=== PATIENT | male | born 1940 | race Caucasian/White ===

== ENCOUNTER → 2018-05-10 | Outpatient (CLI) | payer MEDICARE | END | disposition home or self-care (01) | LOC: PCVCCLINIC 11:19 | DX: I49.3 Ventricular premature depolarization (principal); R42 Dizziness and giddiness; R53.83 Other fatigue | CPT/HCPCS: 93005; G0463 ==

== ENCOUNTER → 2018-05-11 | Outpatient (CLI) | payer MEDICARE | END | disposition home or self-care (01) | LOC: PCVCIMAG 14:02 | DX: I65.23 Occlusion and stenosis of bilateral carotid arteries (principal); R53.83 Other fatigue; R42 Dizziness and giddiness; I49.3 Ventricular premature depolarization; Z79.899 Other long term (current) drug therapy | CPT/HCPCS: 93005; 93306; 93880; G0463 ==

== ENCOUNTER → 2018-06-24 | Outpatient (CLI) | payer MEDICARE | END | disposition home or self-care (01) | LOC: PCVCCLINIC 13:40 | PROVIDERS: ATTEND Internal Medicine | DX: I10 Essential (primary) hypertension (principal); E78.5 Hyperlipidemia, unspecified; R53.83 Other fatigue; Z79.899 Other long term (current) drug therapy; Z87.891 Personal history of nicotine dependence | CPT/HCPCS: G0463 ==

== ENCOUNTER → 2018-07-05 | Outpatient (CLI) | payer MEDICARE ==
--- NOTE | 2018-07-07 14:33 | PCVCIMAG ---
APPROVED REPORT Imaging Protocol: Rest Tc-99m/Stress Tc-99m 1 day Study performed: 07/05/2018 08:55:27 Indication: Fatigue, Palpitations Patient Location: Out-Patient Stress Nurse: Dora Reich RN ID Tech:Carmenmaria dolores Miller [facility] Ht: 5 ft 7 in Wt: 193 lbs BSA: 1.99 m2 HR: 80 bpm BP: 172/96 mmHg BMI: 30.2 Rhythm: SR Medical History Medical History: HTN, Hyperlipidemia, Former Smoker Medications: Atorvastatin, Klonopin, Lisinopril, Omeprazole (took all meds) Allergies: No known drug allergies Pretest Chest Pain Characteristics: No chest pain Exercise History: Physically active Resting Data Rest SPECT myocardial perfusion imaging was performed in supine position 45 minutes following the intravenous injection of 10.2 mCi of Tc-99m Sestamibi. Time of rest injection: 824 Date: 07/05/2018 Administration Route: IV Administration Site: Right AC Exercise Stress At peak stress, the patient was injected intravenously with 3.7mCi of Tc-99m Sestamibi. Administration Route: IV Administration Site: Right AC Patient continued to exercise for 1 minute(s). Gated Stress SPECT was performed 45 minutes after stress injection. The images were gated to evaluate regional wall motion and calculate left ventricular ejection fraction. Stress Test Details Stress Test: Exercise stress testing was performed using a Espinoza protocol. HRMax Heart Rate (APMHR): 140 bpm Resting HR: 80 bpmTarget HR (85% APMHR): 119 bpm Max HR Achieved: 141 bpm % of APMHR: 100 Recovery HR: 89 bpm HR response to stress: Normal HR response to stress BP Resting BP: 172/96 mmHg Recovery BP: 168/90 mmHg BP response to stress: Normal blood pressure response to stress. ECG Resting ECG: Sinus Rhythm, PVCs Stress ECG: Sinus Tachycardia ST Change: None Maximum ST Deviation: 0 mm Arrhythmia: VPC's Recovery ECG: Sinus Rhythm Clinical Reason for Termination: Dyspnea, Maximal effort Stress Symptoms: Dyspnea Exercise duration: 9 min 00 sec Exercise capacity: 10.10 METs Overall Exercise Capacity for Age: Excellent Scale: Active Angina Score: None Symptoms resolved during recovery. Stress ECG Conclusion 1. Subjectively negative for ischemia 2. Echocardiographic negative for ischemia 3. Satisfactory functional capacity 4. Hypertensive blood pressure response Dillon Treadmill Score is 9.0 which is Low risk. Study Data Post stress, the left ventricular ejection was 65%.. SSS: 0 SRS: 0 SDS: 0 TID = 0.72. Perfusion There is a medium area of moderately reduced uptake in the entire segment of the inferior apical wall which is seen on the stress images as well as the resting images. This area thickens and moves normally and is most consistent with attenuation artifact. Wall Motion Normal left ventricular wall motion. Nuclear Conclusion ECG Findings: negative for ischemia Clinical Findings: negative for ischemia Nuclear Findings: negative for ischemia Exercise Capacity: normal Left Ventricular Function: normal 1. Low risk study Interpreted by: Bev Smith MD Electronically Approved: 07/07/2018 14:32:48 <Conclusion> 1. Subjectively negative for ischemia 2. Echocardiographic negative for ischemia 3. Satisfactory functional capacity 4. Hypertensive blood pressure response
== END | disposition home or self-care (01) ==
LOC: PCVCIMAG 12:56
PROVIDERS: ATTEND Internal Medicine
DX: R00.2 Palpitations (principal); R53.83 Other fatigue; I10 Essential (primary) hypertension; E78.5 Hyperlipidemia, unspecified; Z87.891 Personal history of nicotine dependence
CPT/HCPCS: 78452; 93017; A9500

== ENCOUNTER → 2018-07-13 | Outpatient (CLI) | payer MEDICARE | END | disposition home or self-care (01) | LOC: PCVCCLINIC 14:46 | PROVIDERS: ATTEND Internal Medicine | DX: R53.83 Other fatigue (principal); I10 Essential (primary) hypertension; N52.8 Other male erectile dysfunction; Z87.891 Personal history of nicotine dependence | CPT/HCPCS: G0463 ==

== ENCOUNTER → 2019-06-09 | Outpatient (CLI) | payer MEDICARE ==
--- NOTE | 2019-06-10 09:44 | PCVCIMAG ---
APPROVED REPORT Study performed: 06/09/2019 10:13:05 Exam: Stress Echocardiogram Indication: Dyspnea Patient Location: Echo lab Stress Nurse: Dora Reich RN Status: routine Ht: 5 ft 7 in HR: 74 bpm BP: 140/80 mmHg Rhythm: NSR Procedure The patient underwent an Exercise Stress Test using the Espinoza Protocol. Blood pressure, heart rate, and EKG were monitored. An Echocardiogram was performed by outboard technician in four stages in quad fashion. At peak stress, four selected images were obtained and placed side by side with resting images for comparison. Stress Test Details Stress Test: Exercise stress testing was performed using a Espinoza protocol. HR Resting HR: 74 bpmMax Heart Rate (APMHR): 139 bpm Max HR Achieved: 144 bpmTarget HR (85% APMHR): 118 bpm % of APMHR: 103 Recovery HR: 83 bpm HR response to stress: Normal HR response to stress BP Resting BP: 140/80 mmHg Max BP: 180/80 mmHg Recovery BP: 144/78 mmHg BP response to stress: Normal blood pressure response to stress. ECG Resting ECG: Sinus Rhythm Stress ECG: Sinus Rhythm Recovery ECG: Sinus Rhythm Clinical Reason for Termination: Maximal effort Exercise duration: 6 min sec Highest Stage Achieved: Stage 2: 2.5 mph at 12% grade. Exercise capacity: 7.00 METs Overall Exercise Capacity for Age: Normal Stress ECG Conclusion 1. Subjectively negative for ischemia 2. Echocardiographically negative for ischemia 3. Reduce functional capacity Pre-Stress Echo The resting Echocardiogram showed normal left ventricular contractility with an estimated Ejection Fraction of about 55-60%. Normal wall motion in all segments on baseline images. Post-Stress Echo The stress Echocardiogram showed normal left ventricular contractility with an estimated Ejection Fraction of about 60-65%. Normal augmentation of wall motion in all segments on post stress images. Clinical No clinical or ECG evidence for ischemia. Conclusion Clinical Response: Non-ischemic Exercise Capacity: Average Stress ECG Response: Non-ischemic Stress Echo Images: Non-ischemic The left ventricle is normal in size and wall thickness in both the rest and stress images. 1. Low risk study Other Information Study Quality: Adequate <Conclusion> The left ventricle is normal in size and wall thickness in both the rest and stress images. 1. Low risk study
== END | disposition home or self-care (01) ==
LOC: PCVCIMAG 09:34
PROVIDERS: ATTEND Internal Medicine
DX: I10 Essential (primary) hypertension (principal); R06.09 Other forms of dyspnea; Z87.891 Personal history of nicotine dependence
CPT/HCPCS: 93325; 93351